=== PATIENT | female | born 1985 | race African-American/Black ===

== ENCOUNTER 2017-03-03 13:54 | Emergency (ER) | payer OTHER ==
[~2017-03-03] VITALS: Ht 167.6 cm; Wt 84.1 kg
[~2017-03-03 13:54] MED LIST: AMOXICILLIN500 MG PO; AMOXICILLIN875 MG OR; BENADRY2 EX; CIPRO500 MG PO; CIPROFLOXACN500 MG PO; DENIES CURRENT MEDS; FLEXERIL PO; FLUCONAZOLE150 MG PO; LOTRISONE CREAM15 GM EX; MUPIROCIN2 % EX; NAPROSYN500 MG OR; NAPROSYN500 MG PO; PYRIDIUM200 MG PO; TORADOL PO; birth control; no home meds
[2017-03-03 14:38] LABS: URINE BILIRUBIN - DIPSTICK NEGATIVE (NEGATIVE); URINE BLOOD DIPSTICK LARGE (NEGATIVE); URINE CLARITY CLEAR; URINE COLOR YELLOW; URINE GLUCOSE - DIPSTICK NEGATIVE (NEGATIVE); URINE KETONE NEGATIVE (NEGATIVE); URINE LEUK ESTERASE NEGATIVE (Negative); URINE NITRITE - DIPSTICK NEGATIVE (Negative); URINE PROTEIN - DIPSTICK NEGATIVE (NEG-TRACE); URINE SPECIFIC GRAVITY 1.025; URINE UROBILINOGEN - DIPSTICK 0.2 E.U./dL (0.2)
[2017-03-03 14:39] LABS: HEMATOCRIT 32.5 % (37.0-47.0); HEMOGLOBIN 10.5 g/dl (12.0-16.0); IMMATURE GRANULOCYTES 0.3 % (0.0-1.0); MEAN CELL VOLUME 71.1 fL CALC (80.0-100.0); MEAN CORPUSCULAR HGB CONC 32.3 g/L CALC (32.0-36.0); NEUT# 6.72 thou/uL (2.00-7.15); RED BLOOD COUNT 4.57 mill/uL (4.20-5.60); RED CELL DISTRI WIDTH 18.7 % (11.5-15.5)
[2017-03-03 15:18] LABS: ALBUMIN 4.1 g/dL (3.2-5.0); ALKALINE PHOSPHATASE 52 u/l (38-126); ANION GAP 17 (6-22 (CALC)); BILIRUBIN, TOTAL 0.3 mg/dL (0.0-1.4); BUN 11 mg/dL (7-17); BUN/CREATININE RATIO 13 (12-20 (CALC)); CALCIUM 9.3 mg/dL (8.4-10.2); CARBON DIOXIDE 23 mmol/l (22-30); CHLORIDE 107 mmol/l (95-108); CREATININE 0.8 mg/dL (0.5-1.0); GFR > 60 ML/MIN (>=60 (CALC)); GFR FOR AFR.AMER. > 60 ML/MIN (>=60 (CALC)); GLUCOSE 92 mg/dL (65-105); POTASSIUM 4.1 mmol/l (3.5-5.1); SGOT/AST 16 u/l (14-36); SGPT/ALT 24 u/l (9-52); SODIUM 142 mmol/l (137-146); TOTAL PROTEIN 7.7 g/dL (6.3-8.2)
[2017-03-03] MEDS ORDERED: NAPROSYN500 MG PO (15:57)
[2017-03-03 16:03] VITALS: BP 136/82
== END 2017-03-03 16:10 | disposition home or self-care (01) | DRG 392 ==
LOC: ED 13:54
PROVIDERS: Emergency Medicine
DX: R10.2 Pelvic and perineal pain (principal); N93.8 Other specified abnormal uterine and vaginal bleeding

== ENCOUNTER 2017-06-13 21:18 | Emergency (ER) | payer OTHER ==
[~2017-06-13] VITALS: Ht 167.6 cm; Wt 86.4 kg
[2017-06-13 22:05] LABS: URINE BILIRUBIN - DIPSTICK NEGATIVE (NEGATIVE); URINE BLOOD DIPSTICK LARGE (NEGATIVE); URINE CLARITY CLEAR; URINE COLOR YELLOW; URINE GLUCOSE - DIPSTICK NEGATIVE (NEGATIVE); URINE KETONE NEGATIVE (NEGATIVE); URINE LEUK ESTERASE NEGATIVE (NEGATIVE); URINE NITRITE - DIPSTICK NEGATIVE (Negative); URINE PH 5.5 (4.5-8.0); URINE PROTEIN - DIPSTICK NEGATIVE (NEG-TRACE); URINE SPECIFIC GRAVITY >=1.030; URINE UROBILINOGEN - DIPSTICK 0.2 E.U./dL (0.2)
[2017-06-13 22:13] LABS: URINE SQUAMOUS EPITHELIAL CELL FEW EPI/hpf (0-FEW); URINE WBC 0-2 WBC/hpf (0-5)
[2017-06-13] MEDS ORDERED: ULTRAM50 M1 PO (22:36)
[2017-06-13 22:40] VITALS: BP 138/82
== END 2017-06-13 22:40 | disposition home or self-care (01) | DRG 761 ==
LOC: ED 21:18
PROVIDERS: Emergency Medicine
DX: N94.3 Premenstrual tension syndrome (principal); R10.9 Unspecified abdominal pain

== ENCOUNTER 2017-08-09 23:41 | Emergency (ER) | payer OTHER ==
[~2017-08-09] VITALS: Ht 167.6 cm; Wt 87.8 kg
[~2017-08-09 23:41] MED LIST changes: +ULTRAM50 M1 PO
[2017-08-10] MEDS ORDERED: BCP
[2017-08-10] MEDS ORDERED: NAPROSYN500 MG PO (00:34)
[2017-08-10 01:10] VITALS: BP 131/87
== END 2017-08-10 01:10 | disposition home or self-care (01) | DRG 563 ==
LOC: ED 23:41
DX: S83.92XA Sprain of unspecified site of left knee, initial encounter (principal); M25.562 Pain in left knee; R50.9 Fever, unspecified

== ENCOUNTER 2018-01-18 14:36 | Emergency (ER) | payer OTHER ==
[~2018-01-18] VITALS: Ht 167.6 cm; Wt 87.0 kg
[~2018-01-18 14:36] MED LIST changes: +BCP
[2018-01-18] MEDS ORDERED: TORADOL PO (14:50)
[2018-01-18 15:01] VITALS: BP 127/85
== END 2018-01-18 15:10 | disposition home or self-care (01) | DRG 563 ==
LOC: ED 14:36
DX: S39.012A Strain of muscle, fascia and tendon of lower back, initial encounter (principal); V49.9XXA Car occupant (driver) (passenger) injured in unspecified traffic accident, initial encounter

== ENCOUNTER 2018-05-02 09:04 | Emergency (ER) | payer OTHER ==
[~2018-05-02] VITALS: Ht 167.6 cm; Wt 92.0 kg
[2018-05-02] MEDS ORDERED: PROGESTERONE200 MG PO (09:20)
[2018-05-02 10:49] LABS: IMMATURE GRANULOCYTES 0.3 % (0.0-5.0); MEAN CORPUSCULAR HGB 27.9 pG CALC (26.0-32.0); MEAN CORPUSCULAR HGB CONC 33.8 g/L CALC (32.0-36.0); NEUT# 7.96 thou/uL (2.00-7.15); RED BLOOD COUNT 4.88 mill/uL (4.20-5.60); RED CELL DISTRI WIDTH 16.2 % (11.5-15.5)
[2018-05-02 10:54] LABS: URINE BILIRUBIN - DIPSTICK NEGATIVE (NEGATIVE); URINE BLOOD DIPSTICK MODERATE (NEGATIVE); URINE COLOR YELLOW; URINE GLUCOSE - DIPSTICK NEGATIVE (NEGATIVE); URINE KETONE NEGATIVE (NEGATIVE); URINE LEUK ESTERASE NEGATIVE (NEGATIVE); URINE NITRITE - DIPSTICK NEGATIVE (Negative); URINE PROTEIN - DIPSTICK NEGATIVE (NEG-TRACE); URINE UROBILINOGEN - DIPSTICK 0.2 E.U./dL (0.2)
[2018-05-02 10:55] LABS: URINE CLARITY SL CLOUDY; URINE EPITHELIAL CELLS FEW EPI/hpf (0-FEW)
[2018-05-02 11:01] LABS: HEMATOCRIT 40.2 % (37.0-47.0); HEMOGLOBIN 13.6 g/dl (12.0-16.0); MEAN CELL VOLUME 82.4 fL CALC (80.0-100.0)
[2018-05-02 11:02] LABS: BARBITURATES NEGATIVE (NEGATIVE); COCAINE NEGATIVE (NEGATIVE); METHADONE NEGATIVE (NEGATIVE); OXCYCODONE NEGATIVE (NEGATIVE); TETRAHYDROCANNABIONOL NEGATIVE (NEGATIVE); TRICYLIC ANTIDEPRESSANTS NEGATIVE (NEGATIVE)
[2018-05-02 11:08] LABS: ALBUMIN 4.2 g/dL (3.2-5.0); ALKALINE PHOSPHATASE 52 u/l (38-126); ANION GAP 14 (6-22 (CALC)); BILIRUBIN, TOTAL 0.4 mg/dL (0.0-1.4); BUN 13 mg/dL (7-17); BUN/CREATININE RATIO 15 (12-20 (CALC)); CARBON DIOXIDE 28 mmol/l (22-30); CHLORIDE 105 mmol/l (95-108); CREATININE 0.9 mg/dL (0.5-1.0); GFR > 60 ML/MIN (>=60 (CALC)); GFR FOR AFR.AMER. > 60 ML/MIN (>=60 (CALC)); SGOT/AST 21 u/l (14-36); SGPT/ALT 29 u/l (9-52); SODIUM 142 mmol/l (137-146); TOTAL PROTEIN 8.2 g/dL (6.3-8.2)
[2018-05-02 11:21] LABS: ETHYL ALCOHOL 0 mg/dl (0-30)
[2018-05-02] MEDS ORDERED: XANAX0.25 MG PO (11:42)
[2018-05-02 11:45] VITALS: BP 130/81
== END 2018-05-02 11:54 | disposition home or self-care (01) | DRG 880 ==
LOC: ED 09:04
PROVIDERS: Emergency Medicine
DX: F41.9 Anxiety disorder, unspecified (principal)

== ENCOUNTER 2018-06-01 11:45 | Emergency (ER) | payer OTHER ==
[~2018-06-01] VITALS: Ht 167.6 cm; Wt 91.4 kg
[~2018-06-01 11:45] MED LIST changes: +PROGESTERONE200 MG PO; +XANAX0.25 MG PO
[2018-06-01] MEDS ORDERED: CLOMIPHENE PO (11:54)
[2018-06-01] MEDS ORDERED: PRENATA3 PO (11:55)
[2018-06-01 12:27] LABS: URINE BILIRUBIN - DIPSTICK NEGATIVE (NEGATIVE); URINE BLOOD DIPSTICK NEGATIVE (NEGATIVE); URINE COLOR YELLOW; URINE GLUCOSE - DIPSTICK NEGATIVE (NEGATIVE); URINE KETONE NEGATIVE (NEGATIVE); URINE NITRITE - DIPSTICK NEGATIVE (Negative); URINE PROTEIN - DIPSTICK NEGATIVE (NEG-TRACE); URINE SPECIFIC GRAVITY 1.015; URINE UROBILINOGEN - DIPSTICK 0.2 E.U./dL (0.2)
[2018-06-01 12:28] LABS: URINE BACTERIA FEW hpf; URINE CLARITY SL CLOUDY; URINE EPITHELIAL CELLS FEW EPI/hpf (0-FEW); URINE LEUK ESTERASE SMALL (NEGATIVE)
[2018-06-01] MEDS ORDERED: KEFLEX500 M1 PO (14:00)
[2018-06-01 14:09] VITALS: BP 145/89
== END 2018-06-01 14:11 | disposition home or self-care (01) | DRG 781 ==
LOC: ED 11:45
DX: O23.40 Unspecified infection of urinary tract in pregnancy, unspecified trimester (principal); Z3A.00 Weeks of gestation of pregnancy not specified

== ENCOUNTER 2018-06-11 03:35 | Emergency (ER) | payer OTHER ==
[~2018-06-11] VITALS: Ht 172.7 cm; Wt 91.6 kg
[~2018-06-11 03:35] MED LIST changes: +CLOMIPHENE PO; +KEFLEX500 M1 PO; +PRENATA3 PO
[2018-06-11 04:28] VITALS: BP 121/77
[2018-06-12] MEDS ORDERED: PRENATAL1 TA1 PO (13:27)
== END 2018-06-11 04:26 | disposition home or self-care (01) | DRG 159 ==
LOC: ED 03:35
DX: M26.602 Left temporomandibular joint disorder, unspecified (principal); R51 Headache; Z33.1 Pregnant state, incidental

== ENCOUNTER 2018-06-12 13:02 | Emergency (ER) | payer OTHER ==
[~2018-06-12] VITALS: Ht 172.7 cm; Wt 91.4 kg
[2018-06-12] MEDS ORDERED: PRENATAL1 TA1 PO (13:27)
[2018-06-12 14:01] LABS: URINE BILIRUBIN - DIPSTICK NEGATIVE (NEGATIVE); URINE BLOOD DIPSTICK NEGATIVE (NEGATIVE); URINE COLOR YELLOW; URINE GLUCOSE - DIPSTICK NEGATIVE (NEGATIVE); URINE KETONE NEGATIVE (NEGATIVE); URINE NITRITE - DIPSTICK NEGATIVE (Negative); URINE PROTEIN - DIPSTICK NEGATIVE (NEG-TRACE); URINE SPECIFIC GRAVITY 1.025; URINE UROBILINOGEN - DIPSTICK 0.2 E.U./dL (0.2)
[2018-06-12 14:07] LABS: URINE CLARITY HAZY; URINE LEUK ESTERASE SMALL (NEGATIVE)
[2018-06-12 14:10] LABS: URINE RBC 0-2 RBC/hpf (0-5); URINE SQUAMOUS EPITHELIAL CELL MANY EPI/hpf (0-FEW)
[2018-06-12 15:27] VITALS: BP 133/87
== END 2018-06-12 15:25 | disposition home or self-care (01) | DRG 103 ==
LOC: ED 13:02
PROVIDERS: Family Medicine
DX: G43.909 Migraine, unspecified, not intractable, without status migrainosus (principal); Z33.1 Pregnant state, incidental

== ENCOUNTER 2018-07-05 20:29 | Emergency (ER) | payer OTHER ==
[~2018-07-05] VITALS: Ht 172.7 cm; Wt 93.2 kg
[~2018-07-05 20:29] MED LIST changes: +PRENATAL1 TA1 PO
[2018-07-05 21:45] LABS: HEMATOCRIT 35.9 % (37.0-47.0); HEMOGLOBIN 12.4 g/dl (12.0-16.0); IMMATURE GRANULOCYTES 0.4 % (0.0-5.0); MEAN CELL VOLUME 82.5 fL CALC (80.0-100.0); MEAN CORPUSCULAR HGB 28.5 pG CALC (26.0-32.0); MEAN CORPUSCULAR HGB CONC 34.5 g/L CALC (32.0-36.0); NEUT# 9.35 thou/uL (2.00-7.15); RED BLOOD COUNT 4.35 mill/uL (4.20-5.60); RED CELL DISTRI WIDTH 14.6 % (11.5-15.5)
[2018-07-05 21:46] LABS: URINE BILIRUBIN - DIPSTICK NEGATIVE (NEGATIVE); URINE BLOOD DIPSTICK NEGATIVE (NEGATIVE); URINE COLOR YELLOW; URINE GLUCOSE - DIPSTICK NEGATIVE (NEGATIVE); URINE KETONE NEGATIVE (NEGATIVE); URINE NITRITE - DIPSTICK NEGATIVE (Negative); URINE PROTEIN - DIPSTICK NEGATIVE (NEG-TRACE); URINE SPECIFIC GRAVITY <=1.005; URINE UROBILINOGEN - DIPSTICK 0.2 E.U./dL (0.2)
[2018-07-05 22:11] LABS: URINE CLARITY TURBID; URINE LEUK ESTERASE MODERATE (NEGATIVE)
[2018-07-05 22:21] LABS: URINE SQUAMOUS EPITHELIAL CELL MODERATE EPI/hpf (0-FEW)
[2018-07-05] MEDS ORDERED: MACROBID100 MG PO (22:48)
[2018-07-05 23:21] VITALS: BP 138/71
== END 2018-07-05 23:20 | disposition home or self-care (01) | DRG 833 ==
LOC: ED 20:29
PROVIDERS: Family Medicine
DX: O23.91 Unspecified genitourinary tract infection in pregnancy, first trimester (principal); R10.2 Pelvic and perineal pain; Z3A.09 9 weeks gestation of pregnancy

== ENCOUNTER 2018-08-28 22:47 | Emergency (ER) | payer OTHER ==
[~2018-08-28] VITALS: Ht 172.7 cm; Wt 90.9 kg
[~2018-08-28 22:47] MED LIST changes: +MACROBID100 MG PO
[2018-08-29 00:15] LABS: URINE BILIRUBIN - DIPSTICK NEGATIVE (NEGATIVE); URINE BLOOD DIPSTICK NEGATIVE (NEGATIVE); URINE COLOR YELLOW; URINE GLUCOSE - DIPSTICK NEGATIVE (NEGATIVE); URINE KETONE NEGATIVE (NEGATIVE); URINE LEUK ESTERASE TRACE (NEGATIVE); URINE NITRITE - DIPSTICK NEGATIVE (Negative); URINE PH 6.5 (4.5-8.0); URINE PROTEIN - DIPSTICK NEGATIVE (NEG-TRACE); URINE SPECIFIC GRAVITY 1.015; URINE UROBILINOGEN - DIPSTICK 0.2 E.U./dL (0.2)
[2018-08-29 00:16] LABS: HEMATOCRIT 35.5 % (37.0-47.0); HEMOGLOBIN 12.6 g/dl (12.0-16.0); IMMATURE GRANULOCYTES 0.3 % (0.0-5.0); MEAN CELL VOLUME 83.9 fL CALC (80.0-100.0); MEAN CORPUSCULAR HGB 29.8 pG CALC (26.0-32.0); MEAN CORPUSCULAR HGB CONC 35.5 g/L CALC (32.0-36.0); NEUT# 9.17 thou/uL (2.00-7.15); RED BLOOD COUNT 4.23 mill/uL (4.20-5.60); RED CELL DISTRI WIDTH 14.3 % (11.5-15.5)
[2018-08-29 00:28] LABS: ALBUMIN 3.7 g/dL (3.2-5.0); ALKALINE PHOSPHATASE 46 u/l (38-126); ANION GAP 14 (6-22 (CALC)); BILIRUBIN, TOTAL 0.4 mg/dL (0.0-1.4); BUN 7 mg/dL (7-17); BUN/CREATININE RATIO 12 (12-20 (CALC)); CARBON DIOXIDE 23 mmol/l (22-30); CHLORIDE 104 mmol/l (95-108); CREATININE 0.6 mg/dL (0.5-1.0); GFR > 60 ML/MIN (>=60 (CALC)); GFR FOR AFR.AMER. > 60 ML/MIN (>=60 (CALC)); POTASSIUM 4.1 mmol/l (3.5-5.1); SGOT/AST 18 u/l (14-36); SODIUM 137 mmol/l (137-146); TOTAL PROTEIN 7.2 g/dL (6.3-8.2)
[2018-08-29 01:00] VITALS: BP 134/84
[2018-08-29 01:09] LABS: BETA-HCG, QUANT(RESULT NUMBER) 16562 mIU/mL
[2018-08-29 01:24] LABS: URINE BACTERIA RARE hpf; URINE SQUAMOUS EPITHELIAL CELL FEW EPI/hpf (0-FEW)
[2018-08-29] MEDS ORDERED: CEPHALEXIN500 M1 PO (04:15)
== END 2018-08-29 01:13 | disposition home or self-care (01) | DRG 833 ==
LOC: ED 22:47
PROVIDERS: Emergency Medicine
DX: O23.92 Unspecified genitourinary tract infection in pregnancy, second trimester (principal); Z3A.16 16 weeks gestation of pregnancy; R10.30 Lower abdominal pain, unspecified; K64.8 Other hemorrhoids

== ENCOUNTER 2018-10-17 15:56 | Emergency (ER) | payer OTHER ==
[~2018-10-17] VITALS: Ht 172.7 cm; Wt 97.2 kg
[~2018-10-17 15:56] MED LIST changes: +CEPHALEXIN500 M1 PO
[2018-10-17] MEDS ORDERED: PRE-NATAL PO (16:36)
[2018-10-17 18:41] VITALS: BP 124/77
== END 2018-10-17 18:47 | disposition home or self-care (01) | DRG 833 ==
LOC: ED 15:56
DX: O26.899 Other specified pregnancy related conditions, unspecified trimester (principal); R51 Headache; Z3A.00 Weeks of gestation of pregnancy not specified

== ENCOUNTER 2018-12-12 20:43 | Emergency (ER) | payer OTHER ==
[~2018-12-12] VITALS: Ht 172.7 cm; Wt 102.6 kg
[~2018-12-12 20:43] MED LIST changes: +PRE-NATAL PO
[2018-12-12 20:50] VITALS: BP 121/76
== END 2018-12-12 21:25 | disposition left against medical advice (07) | DRG 833 ==
LOC: ED 20:43
DX: O26.893 Other specified pregnancy related conditions, third trimester (principal); Z3A.32 32 weeks gestation of pregnancy; R10.2 Pelvic and perineal pain; M54.5 Low back pain; Z91.19 Patient's noncompliance with other medical treatment and regimen

== ENCOUNTER 2020-03-07 00:38 | Emergency (ER) | payer BC ==
[~2020-03-07] VITALS: Ht 172.7 cm; Wt 71.8 kg
[2020-03-07 03:00] VITALS: BP 118/70
[2020-03-07] MEDS ORDERED: BENADRYL 50MG C50 MG PO ×2 (03:04)
== END 2020-03-07 03:15 | disposition home or self-care (01) | DRG 690 ==
LOC: ED 00:38
DX: N39.0 Urinary tract infection, site not specified (principal); M25.562 Pain in left knee

== ENCOUNTER 2020-06-16 09:24 | Emergency (ER) | payer BC ==
[~2020-06-16] VITALS: Ht 172.7 cm; Wt 70.0 kg
[~2020-06-16 09:24] MED LIST changes: +BENADRYL 50MG C50 MG PO
[2020-06-16 10:35] LABS: URINE BILIRUBIN - DIPSTICK NEGATIVE (NEGATIVE); URINE BLOOD DIPSTICK NEGATIVE (NEGATIVE); URINE COLOR YELLOW; URINE GLUCOSE - DIPSTICK NEGATIVE (NEGATIVE); URINE KETONE NEGATIVE (NEGATIVE); URINE LEUK ESTERASE NEGATIVE (NEGATIVE); URINE NITRITE - DIPSTICK NEGATIVE (Negative); URINE PROTEIN - DIPSTICK NEGATIVE (NEG-TRACE); URINE UROBILINOGEN - DIPSTICK 0.2 E.U./dL (0.2)
[2020-06-16 10:42] LABS: HEMOGLOBIN 13.5 g/dl (12.0-16.0); IMMATURE GRANULOCYTES 0.3 % (0.0-5.0); MEAN CELL VOLUME 85.3 fL CALC (80.0-100.0); MEAN CORPUSCULAR HGB 28.8 pG CALC (26.0-32.0); MEAN CORPUSCULAR HGB CONC 33.8 g/dL CAL (32.0-36.0); NEUT# 4.82 thou/uL (2.00-7.15); RED BLOOD COUNT 4.69 mill/uL (4.20-5.60); RED CELL DISTRI WIDTH 14.8 % (11.5-15.5)
[2020-06-16 11:02] LABS: ALBUMIN 4.4 g/dL (3.2-5.0); ALKALINE PHOSPHATASE 37 u/l (38-126); ANION GAP 10 (6-22 (CALC)); BILIRUBIN, TOTAL 0.4 mg/dL (0.0-1.4); BUN 10 mg/dL (7-17); BUN/CREATININE RATIO 14 (12-20 (CALC)); CARBON DIOXIDE 27 mmol/l (22-30); CHLORIDE 105 mmol/l (95-108); CREATININE 0.8 mg/dL (0.5-1.0); GFR > 60 ML/MIN (>=60 (CALC)); GFR FOR AFR.AMER. > 60 ML/MIN (>=60 (CALC)); LIPASE 62 u/l (23-300); POTASSIUM 4.1 mmol/l (3.5-5.1); SGOT/AST 21 u/l (14-36); SODIUM 138 mmol/l (137-146); TOTAL PROTEIN 7.7 g/dL (6.3-8.2)
[2020-06-16 12:54] VITALS: BP 120/93
== END 2020-06-16 12:54 | disposition home or self-care (01) | DRG 392 ==
LOC: ED 09:24
PROVIDERS: Family Medicine
DX: R10.32 Left lower quadrant pain (principal); R30.0 Dysuria
CPT/HCPCS: Q9967

== ENCOUNTER 2020-09-23 22:25 | Emergency (ER) | payer BC ==
[~2020-09-23] VITALS: Ht 172.7 cm; Wt 62.2 kg
[2020-09-23 23:19] LABS: HEMATOCRIT 35.9 % (37.0-47.0); HEMOGLOBIN 12.1 g/dl (12.0-16.0); IMMATURE GRANULOCYTES 0.3 % (0.0-5.0); MEAN CELL VOLUME 85.9 fL CALC (80.0-100.0); MEAN CORPUSCULAR HGB 28.9 pG CALC (26.0-32.0); MEAN CORPUSCULAR HGB CONC 33.7 g/dL CAL (32.0-36.0); NEUT# 3.99 thou/uL (2.00-7.15); RED BLOOD COUNT 4.18 mill/uL (4.20-5.60); RED CELL DISTRI WIDTH 15.9 % (11.5-15.5)
[2020-09-23 23:31] LABS: URINE BILIRUBIN - DIPSTICK NEGATIVE (NEGATIVE); URINE BLOOD DIPSTICK NEGATIVE (NEGATIVE); URINE COLOR YELLOW; URINE GLUCOSE - DIPSTICK NEGATIVE (NEGATIVE); URINE KETONE NEGATIVE (NEGATIVE); URINE LEUK ESTERASE NEGATIVE (NEGATIVE); URINE NITRITE - DIPSTICK NEGATIVE (Negative); URINE PROTEIN - DIPSTICK NEGATIVE (NEG-TRACE); URINE SPECIFIC GRAVITY 1.025; URINE UROBILINOGEN - DIPSTICK 0.2 E.U./dL (0.2)
[2020-09-23 23:53] LABS: ALKALINE PHOSPHATASE 35 u/l (38-126); ANION GAP 11 (6-22 (CALC)); BILIRUBIN, TOTAL 0.3 mg/dL (0.0-1.4); BUN 9 mg/dL (7-17); BUN/CREATININE RATIO 11 (12-20 (CALC)); CARBON DIOXIDE 26 mmol/l (22-30); CHLORIDE 105 mmol/l (95-108); CREATININE 0.8 mg/dL (0.5-1.0); GFR > 60 ML/MIN (>=60 (CALC)); GFR FOR AFR.AMER. > 60 ML/MIN (>=60 (CALC)); POTASSIUM 3.5 mmol/l (3.5-5.1); SGOT/AST 19 u/l (14-36); SODIUM 138 mmol/l (137-146); TOTAL PROTEIN 7.2 g/dL (6.3-8.2)
[2020-09-24 00:05] LABS: MYOGLOBIN 29 ng/mL (0 - 62)
[2020-09-24] MEDS ORDERED: ZPAK PO (00:07)
[2020-09-24 00:30] VITALS: BP 144/96
== END 2020-09-24 00:30 | disposition home or self-care (01) | DRG 179 ==
LOC: ED 22:25
PROVIDERS: Emergency Medicine
DX: U07.1 COVID-19 (principal)

== ENCOUNTER 2020-10-07 23:03 | Emergency (ER) | payer BC ==
[~2020-10-07] VITALS: Ht 172.7 cm; Wt 63.6 kg
[~2020-10-07 23:03] MED LIST changes: +ZPAK PO
[2020-10-07] MEDS ORDERED: WELLBUTRIN100 M2 PO (23:26)
[2020-10-07 23:54] LABS: URINE BLOOD DIPSTICK LARGE (NEGATIVE); URINE COLOR YELLOW; URINE GLUCOSE - DIPSTICK NEGATIVE (NEGATIVE); URINE KETONE NEGATIVE (NEGATIVE); URINE NITRITE - DIPSTICK NEGATIVE (Negative); URINE PH 5.5 (4.5-8.0); URINE PROTEIN - DIPSTICK 100 mg/dL (NEG-TRACE); URINE SPECIFIC GRAVITY 1.025; URINE UROBILINOGEN - DIPSTICK 0.2 E.U./dL (0.2)
[2020-10-07 23:56] LABS: URINE BILIRUBIN - DIPSTICK SMALL (NEGATIVE)
[2020-10-07 23:58] LABS: HEMOGLOBIN 11.3 g/dl (12.0-16.0); IMMATURE GRANULOCYTES 0.6 % (0.0-5.0); MEAN CORPUSCULAR HGB 28.9 pG CALC (26.0-32.0); MEAN CORPUSCULAR HGB CONC 33.2 g/dL CAL (32.0-36.0); NEUT# 4.11 thou/uL (2.00-7.15); RED BLOOD COUNT 3.91 mill/uL (4.20-5.60); RED CELL DISTRI WIDTH 15.5 % (11.5-15.5)
[2020-10-08] LABS: URINE BACTERIA MODERATE hpf; URINE EPITHELIAL CELLS FEW EPI/hpf (0-FEW); URINE LEUK ESTERASE NEGATIVE (NEGATIVE); URINE RBC >100 RBC/hpf (0-5)
[2020-10-08 00:11] LABS: ALBUMIN 4.1 g/dL (3.2-5.0); ALKALINE PHOSPHATASE 32 u/l (38-126); ANION GAP 10 (6-22 (CALC)); BILIRUBIN, TOTAL 0.3 mg/dL (0.0-1.4); BUN 14 mg/dL (7-17); BUN/CREATININE RATIO 16 (12-20 (CALC)); CARBON DIOXIDE 26 mmol/l (22-30); CHLORIDE 103 mmol/l (95-108); CREATININE 0.9 mg/dL (0.5-1.0); GFR > 60 ML/MIN (>=60 (CALC)); GFR FOR AFR.AMER. > 60 ML/MIN (>=60 (CALC)); POTASSIUM 3.7 mmol/l (3.5-5.1); SGOT/AST 30 u/l (14-36); SODIUM 136 mmol/l (137-146); TOTAL PROTEIN 7.6 g/dL (6.3-8.2)
[2020-10-08 01:00] VITALS: BP 115/72
[2020-10-08] MEDS ORDERED: VENTOLIN HFA IN (01:19)
[2020-10-08] MEDS ORDERED: BACTRIM DS1 TAB PO (01:19)
[2020-10-08] MEDS ORDERED: MEDDOSEPAK PO (01:19)
--- NOTE | 2020-10-10 11:36 | NUR ---
Urine culture from 10/08/20 shows S. agalactiae (B) susceptible to ampicillin. Patient received rx for Bactrim DS and had picked it up from [facility]. New rx for amoxicillin 875 mg PO BID for 7 days was called into [facility] on 10/10/20. Pt was called and notified to discontinue the rx for Bactrim DS and to start the new rx for amoxicillin 875 mg called into [facility]. Pt verbalized her understanding.
== END 2020-10-08 01:26 | disposition home or self-care (01) | DRG 178 ==
LOC: ED 23:03
DX: U07.1 COVID-19 (principal); N39.0 Urinary tract infection, site not specified; J40 Bronchitis, not specified as acute or chronic; B95.1 Streptococcus, group B, as the cause of diseases classified elsewhere

== ENCOUNTER 2020-10-08 11:10 | Emergency (ER) | payer BC ==
[~2020-10-08] VITALS: Ht 172.7 cm; Wt 59.0 kg
[~2020-10-08 11:10] MED LIST changes: +BACTRIM DS1 TAB PO; +MEDDOSEPAK PO; +VENTOLIN HFA IN; +WELLBUTRIN100 M2 PO
[2020-10-08 11:50] LABS: HEMATOCRIT 36.5 % (37.0-47.0); HEMOGLOBIN 12.1 g/dl (12.0-16.0); IMMATURE GRANULOCYTES 0.3 % (0.0-5.0); MEAN CELL VOLUME 86.9 fL CALC (80.0-100.0); MEAN CORPUSCULAR HGB 28.8 pG CALC (26.0-32.0); MEAN CORPUSCULAR HGB CONC 33.2 g/dL CAL (32.0-36.0); NEUT# 8.03 thou/uL (2.00-7.15); RED BLOOD COUNT 4.2 mill/uL (4.20-5.60); RED CELL DISTRI WIDTH 15.2 % (11.5-15.5)
[2020-10-08 12:04] LABS: ALBUMIN 4.4 g/dL (3.2-5.0); ALKALINE PHOSPHATASE 40 u/l (38-126); ANION GAP 12 (6-22 (CALC)); BILIRUBIN, TOTAL 0.4 mg/dL (0.0-1.4); BUN 10 mg/dL (7-17); BUN/CREATININE RATIO 16 (12-20 (CALC)); CARBON DIOXIDE 24 mmol/l (22-30); CHLORIDE 104 mmol/l (95-108); CREATININE 0.7 mg/dL (0.5-1.0); GFR > 60 ML/MIN (>=60 (CALC)); GFR FOR AFR.AMER. > 60 ML/MIN (>=60 (CALC)); POTASSIUM 4.1 mmol/l (3.5-5.1); SGOT/AST 30 u/l (14-36); SODIUM 136 mmol/l (137-146); TOTAL PROTEIN 7.9 g/dL (6.3-8.2)
[2020-10-08 14:42] VITALS: BP 114/69
== END 2020-10-08 14:49 | disposition home or self-care (01) | DRG 313 ==
LOC: ED 11:10
PROVIDERS: Family Medicine
DX: R07.89 Other chest pain (principal); Z86.16 Personal history of COVID-19
CPT/HCPCS: Q9967

== ENCOUNTER 2022-06-23 07:52 | Emergency (ER) | payer MEDICAID ==
[~2022-06-23] VITALS: Ht 172.7 cm; Wt 69.9 kg
[2022-06-23] VITALS (7 sets, daily range): BP systolic 112–144; BP diastolic 78–95
[2022-06-23] MEDS ORDERED: CLONIDINE0.1 MG PO (08:12)
[2022-06-23] MEDS ORDERED: NORVASC5 M1 PO (08:12)
[2022-06-23] MEDS ORDERED: LOSARTAN POTASS50 MG PO (08:12)
[2022-06-23 08:38] LABS: HEMATOCRIT 40.2 % (37.0-47.0); HEMOGLOBIN 13.6 g/dl (12.0-16.0); IMMATURE GRANULOCYTES 0.2 % (0.0-5.0); MEAN CELL VOLUME 86.8 fL CALC (80.0-100.0); MEAN CORPUSCULAR HGB 29.4 pG CALC (26.0-32.0); MEAN CORPUSCULAR HGB CONC 33.8 g/dL CAL (32.0-36.0); NEUT# 3.16 thou/uL (2.00-7.15); RED BLOOD COUNT 4.63 mill/uL (4.20-5.60); RED CELL DISTRI WIDTH 15.6 % (11.5-15.5)
[2022-06-23 08:49] LABS: ALBUMIN 4.5 g/dL (3.2-5.0); ALKALINE PHOSPHATASE 37 u/l (38-126); ANION GAP 14 (6-22 (CALC)); BUN 9 mg/dL (7-17); BUN/CREATININE RATIO 10 (12-20 (CALC)); CARBON DIOXIDE 24 mmol/l (22-30); CHLORIDE 106 mmol/l (95-108); CREATININE 0.9 mg/dL (0.5-1.0); GFR FOR AFR.AMER. > 60 ML/MIN (>=60 (CALC)); GFR OTHER RACES > 60 ML/MIN (>=60 (CALC)); POTASSIUM 3.6 mmol/l (3.5-5.1); SGOT/AST 30 u/l (14-36); SODIUM 141 mmol/l (137-146); TOTAL PROTEIN 8.5 g/dL (6.3-8.2)
[2022-06-23 08:50] LABS: BILIRUBIN, TOTAL 0.6 mg/dL (0.0-1.4)
[2022-06-23 09:19] LABS: URINE BILIRUBIN - DIPSTICK NEGATIVE (NEGATIVE); URINE BLOOD DIPSTICK MODERATE (NEGATIVE); URINE COLOR YELLOW; URINE GLUCOSE - DIPSTICK NEGATIVE (NEGATIVE); URINE KETONE NEGATIVE (NEGATIVE); URINE LEUK ESTERASE NEGATIVE (NEGATIVE); URINE PROTEIN - DIPSTICK NEGATIVE (NEG-TRACE); URINE UROBILINOGEN - DIPSTICK 0.2 E.U./dL (0.2)
[2022-06-23 09:29] LABS: URINE NITRITE - DIPSTICK NEGATIVE (Negative)
[2022-06-23 09:33] LABS: URINE SQUAMOUS EPITHELIAL CELL MANY EPI/hpf (0-FEW); URINE WBC 0-2 WBC/hpf (0-5)
== END 2022-06-23 09:19 | disposition home or self-care (01) ==
LOC: ED 07:52
PROVIDERS: Emergency Medicine
DX: G44.209 Tension-type headache, unspecified, not intractable (principal); I10 Essential (primary) hypertension

== ENCOUNTER 2022-07-14 10:02 | Emergency (ER) | payer MEDICAID ==
[~2022-07-14] VITALS: Ht 172.7 cm; Wt 68.0 kg
[2022-07-14] VITALS (12 sets, daily range): BP systolic 128–185; BP diastolic 78–107
[~2022-07-14 10:02] MED LIST changes: +CLONIDINE0.1 MG PO; +LOSARTAN POTASS50 MG PO; +NORVASC5 M1 PO
[2022-07-14 11:32] LABS: HEMATOCRIT 41.9 % (37.0-47.0); HEMOGLOBIN 14.4 g/dl (12.0-16.0); IMMATURE GRANULOCYTES 0.4 % (0.0-5.0); MEAN CELL VOLUME 87.7 fL CALC (80.0-100.0); MEAN CORPUSCULAR HGB 30.1 pG CALC (26.0-32.0); MEAN CORPUSCULAR HGB CONC 34.4 g/dL CAL (32.0-36.0); NEUT# 7.78 thou/uL (2.00-7.15); RED BLOOD COUNT 4.78 mill/uL (4.20-5.60); RED CELL DISTRI WIDTH 14.9 % (11.5-15.5)
[2022-07-14 11:46] LABS: ALBUMIN 4.6 g/dL (3.2-5.0); ALKALINE PHOSPHATASE 41 u/l (38-126); ANION GAP 12 (6-22 (CALC)); BUN 8 mg/dL (7-17); BUN/CREATININE RATIO 10 (12-20 (CALC)); CARBON DIOXIDE 27 mmol/l (22-30); CHLORIDE 108 mmol/l (95-108); CREATININE 0.8 mg/dL (0.5-1.0); GFR FOR AFR.AMER. > 60 ML/MIN (>=60 (CALC)); GFR OTHER RACES > 60 ML/MIN (>=60 (CALC)); POTASSIUM 3.5 mmol/l (3.5-5.1); SGOT/AST 24 u/l (14-36); SODIUM 144 mmol/l (137-146); TOTAL PROTEIN 8.4 g/dL (6.3-8.2)
[2022-07-14 11:47] LABS: BILIRUBIN, TOTAL 0.9 mg/dL (0.0-1.4)
== END 2022-07-14 13:35 | disposition home or self-care (01) ==
LOC: ED 10:02
PROVIDERS: Family Medicine
DX: R51.9 Headache, unspecified (principal); I10 Essential (primary) hypertension

== ENCOUNTER 2022-08-22 15:01 | Emergency (ER) | payer MEDICAID ==
[~2022-08-22] VITALS: Ht 172.7 cm; Wt 66.8 kg
[2022-08-22 16:30] VITALS: BP 141/93
== END 2022-08-22 16:35 | disposition home or self-care (01) ==
LOC: ED 15:01
DX: M79.661 Pain in right lower leg (principal); I10 Essential (primary) hypertension

== ENCOUNTER 2023-04-07 04:56 | Emergency (ER) | payer MEDICAID ==
[~2023-04-07] VITALS: Ht 172.7 cm; Wt 67.0 kg
[2023-04-07 05:00] VITALS: BP 147/98
[2023-04-07] MEDS ORDERED: LOPRESSOR25 M1 PO (05:14)
[2023-04-07] MEDS ORDERED: NAPROXEN500 MG PO (05:15)
[2023-04-07] MEDS ORDERED: ANTIBIOTIC (05:16)
[2023-04-07] MEDS ORDERED: TYLENOL # 31 TA1 PO (05:24)
== END 2023-04-07 05:39 | disposition home or self-care (01) ==
LOC: ED 04:56
DX: K04.7 Periapical abscess without sinus (principal); K02.9 Dental caries, unspecified; I10 Essential (primary) hypertension

== ENCOUNTER 2023-04-17 11:38 | Emergency (ER) | payer MEDICAID ==
[~2023-04-17] VITALS: Ht 172.7 cm; Wt 68.0 kg
[~2023-04-17 11:38] MED LIST changes: +ANTIBIOTIC; +LOPRESSOR25 M1 PO; +NAPROXEN500 MG PO; +TYLENOL # 31 TA1 PO
[2023-04-17 11:57] VITALS: BP 138/97
[2023-04-17 12:00] VITALS: BP 134/92
[2023-04-17 12:57] VITALS: BP 120/97
[2023-04-17 13:00] VITALS: BP 140/102
[2023-04-17] MEDS ORDERED: CEPHALEXIN500 MG PO (13:12)
[2023-04-17 13:15] VITALS: BP 119/85
[2023-04-17 13:45] VITALS: BP 119/85
== END 2023-04-17 13:52 | disposition home or self-care (01) ==
LOC: ED 11:38
DX: I10 Essential (primary) hypertension (principal); S01.111A Laceration without foreign body of right eyelid and periocular area, initial encounter; Y04.8XXA Assault by other bodily force, initial encounter; Y92.009 Unspecified place in unspecified non-institutional (private) residence as the place of occurrence of the external cause

== ENCOUNTER 2024-03-25 12:15 | Emergency (ER) | payer MEDICAID ==
[~2024-03-25] VITALS: Ht 172.7 cm; Wt 64.4 kg
[~2024-03-25 12:15] MED LIST changes: +CEPHALEXIN500 MG PO; +MOTRIN400 MG/TAB PO; +TRAMADOL HYDROC50 M1 PO
[2024-03-25 12:31] VITALS: BP 128/86
[2024-03-25] MEDS ORDERED: TETRACAINE HCL 0.5 %/4 ML SOL OU ONE (12:40)
[2024-03-25 12:45] VITALS: BP 117/85
[2024-03-25] MEDS ORDERED: FLUORESCEIN SODIUM 1 MG EA OU ONE (12:45)
[2024-03-25 13:00] VITALS: BP 118/78
[2024-03-25] MEDS ORDERED: AZELASTINE0.05 % OU (13:03)
[2024-03-25 13:15] VITALS: BP 109/68
== END 2024-03-25 13:15 | disposition home or self-care (01) ==
LOC: ED 12:15
DX: H10.13 Acute atopic conjunctivitis, bilateral (principal); I10 Essential (primary) hypertension; F41.9 Anxiety disorder, unspecified; T49.5X6A Underdosing of ophthalmological drugs and preparations, initial encounter; Z91.120 Patient's intentional underdosing of medication regimen due to financial hardship